=== PATIENT | male | born 1970 | race Caucasian/White ===

== ENCOUNTER → 2016-09-12 | Outpatient (CLI) | payer BC, OTHER | LOC: BMCIMAGING 09:02 | PROVIDERS: ATTEND Family Medicine | DX: S89.91XA Unspecified injury of right lower leg, initial encounter (principal); L08.9 Local infection of the skin and subcutaneous tissue, unspecified ==

== ENCOUNTER 2017-11-28 08:18 | Day surgery (SDC) | payer BC ==
[2017-11-28] MEDS ORDERED: cefOXitin SODIUM 2 GM in STERILE WATER INJ 21 ML IV ONE (08:28)
[2017-11-28] MEDS ORDERED: LR 1,000 ML IV ONE (08:30)
[2017-11-28] MEDS ORDERED: LIDOCAINE 1% 2 ML INJ ID PRN (08:30)
[2017-11-28] MEDS ORDERED: BUPIVACAINE 0.25% 30 ML SDV ONE (08:53)
--- NOTE | 2017-11-28 09:49 | PDHPUP ---
History & Physical Update H&P update statement: This history and physical update is based on an assessment of the patient which was completed after admission or registration (within 24 hours), but prior to the surgery/procedure. H&P update: H&P reviewed & patient examined, no change in patient's condition since H&P completed
[2017-11-28] MEDS ORDERED: MIDAZOLAM 2 MG/2 ML VIAL IVP ONE (10:01)
[2017-11-28] MEDS ORDERED: MIDAZOLAM 2 MG/2 ML VIAL ONE (10:02)
--- NOTE | 2017-11-28 10:02 | PDANEPAE ---
ANE History of Present Illness hemorrhoids ANE Past Medical History - Cardiovascular History Hx Hypertension: No Hx Arrhythmias: No Hx Chest Pain: No Hx Coronary Artery / Peripheral Vascular Disease: No Hx CHF / Valvular Disease: No Hx Palpitations: No - Pulmonary History Hx COPD: No Hx Asthma/Reactive Airway Disease: No Hx Recent Upper Respiratory Infection: No Hx Oxygen in Use at Home: No Hx Sleep Apnea: No Sleep Apnea Screening Result - Last Documented: Negative - Neurologic History Hx Cerebrovascular Accident: No Hx Seizures: No Hx Dementia: No - Endocrine History Hx Diabetes: No - Renal History Hx Renal Disorders: No - Liver History Hx Hepatic Disorders: No - Neurological & Psychiatric Hx Hx Neurological and Psychiatric Disorders: No - Cancer History Hx Cancer: No - Congenital Disorder History Hx Congenital Disorders: No - GI History Hx Gastrointestinal Disorders: No Gastrointestinal History Comment: POSS IBS - Other Health History Other Health History: NEG - Chronic Pain History Chronic Pain: No - Surgical History Prior Surgeries: VASECTOMY. COLONOSCOPY. CHILDHOOD TONSILLECTOMY ANE Review of Systems Review of Systems: - Exercise capacity METS (RN): 6 METS ANE Patient History - Allergies Allergies/Adverse Reactions: No Known Allergies Allergy (Unverified 11/27/17 16:28) - Home Medications Home Medications: Herbals/Supplements -Info Only 11/27/17 [Last Taken Unknown] - NPO status NPO Since - Liquids (Date): 11/28/17 NPO Since - Liquids (Time): 06:20 NPO Since - Solids (Date): 11/27/17 NPO Since - Solids (Time): 19:30 - Smoking Hx Smoking Status: Never smoked - Family Anes Hx Family Hx Anesthesia Complications: NEG ANE Labs/Vital Signs - Vital Signs Blood Pressure: 109/77 Heart Rate: 48 Respiratory Rate: 18 O2 Sat (%): 96 Height: 180.34 cm Weight: 74.843 kg ANE Physical Exam - Airway Neck exam: FROM Mallampati Score: Class 1 Mouth exam: normal dental/mouth exam - Pulmonary Pulmonary: no respiratory distress - Cardiovascular Cardiovascular: regular rate and rhythym - ASA Status ASA Status: I ANE Anesthesia Plan Anesthesia Plan: general endotracheal anesthesia
[2017-11-28] MEDS ORDERED: fentaNYL 100 MCG/2 ML INJ ONE ×2 (10:05)
[2017-11-28] MEDS ORDERED: PROPOFOL 200 MG/20 ML VIAL ONE (10:05)
[2017-11-28] MEDS ORDERED: fentaNYL 100 MCG/2 ML INJ IVP PRN (10:30)
[2017-11-28] MEDS ORDERED: HYDROCODONE/APAP 5/325 TAB PO PRN (10:30)
[2017-11-28] MEDS ORDERED: ONDANSETRON 4 MG/2 ML VIAL IVP PRN (10:30)
[2017-11-28] MEDS ORDERED: NALOXONE HCL 0.4 MG/ML INJ IVP PRN (10:30)
[2017-11-28] MEDS ORDERED: HYDROmorphONE/DILAUDID 2 MG/ML INJ IVP PRN (10:30)
[2017-11-28] MEDS ORDERED: PROMETHAZINE HCL 25 MG/ML INJ IVP PRN (10:30)
[2017-11-28] MEDS ORDERED: ROCURONIUM 50 MG/5 ML VIAL ONE (10:51)
[2017-11-28] MEDS ORDERED: ONDANSETRON 4 MG/2 ML VIAL ONE (10:51)
[2017-11-28] MEDS ORDERED: DEXAMETHASONE 4 MG/ML VIAL ONE (10:52)
[2017-11-28] MEDS ORDERED: LIDOCAINE 2% 5 ML SDV ONE (10:52)
--- NOTE | 2017-11-28 11:09 | POSTOPPROG ---
Post Op Note Date of Operation: 11/28/17 Surgeon: Cristi Mcgee Anesthesiologist: Dr. [place] Anesthesia: GET(General Endotracheal) Pre-op Diagnosis: Hemorrhoids Post-op Diagnosis: same Procedure: REUA, hemorrhoidectomy Inf/Abcess present in the surg proc area at time of surgery?: No Depth: Superfical (Skin SQ) EBL: Minimal
--- NOTE | 2017-11-28 11:10 | POSTANESTH ---
Post Anesthetic Evaluation Cardiovascular Status: Normal, Stable Respiratory Status: Normal, Stable Level of Consciousness/Mental Status: Can Participate in Eval Pain Control: Adequate, Prn Tx Ordered Nausea/Vomiting Control: Adequate, Prn Tx Ordered Complications Possibly Related to Anesthesia: None Noted
--- NOTE | 2017-11-28 11:48 | GOP ---
[f rep st] OPERATIVE REPORT DATE OF OPERATION: 11/28/2017 SURGEON: Ga Mcgee MD ANESTHESIA: General endotracheal anesthesia. ANESTHESIOLOGIST: Alison [place] MD. PREOPERATIVE DIAGNOSIS: Hemorrhoids. POSTOPERATIVE DIAGNOSIS: Hemorrhoids. PROCEDURE PERFORMED: 1. Rectal examination under anesthesia. 2. Internal and external hemorrhoidectomy. FINDINGS: The patient had single column internal and external hemorrhoidal disease. No other lesion s were identified. ESTIMATED BLOOD LOSS: 20 cc. INDICATIONS: 47-year-old male with a history of hemorrhoids. Risks and benefits of the procedure we re discussed with the patient, questions were answered, and he wished to proceed. DESCRIPTION OF PROCEDURE: With the patient in the supine position after the induction of adequate ge neral endotracheal anesthesia, the patient was moved to the modified lithotomy position. He was then prepped and draped in the standard surgical fashion. The anus was serially dilated after performing digital exam. The anoscope was placed, and the rectum was inspected. The right posterior column [place] internal-external complex hemorrhoids. No other lesions were identified. 0.25% Marcaine was then infiltrated throughout the area for local anesthesia. The hemorrhoid was elevated and then clamped. A suture of 3-0 chromic was passed below the clamp initially. The hemorrhoid itself was excised and the clamp removed. The suture was then returned in a locking fashion to the superior aspect of the suture. This was then tied, and this resulted in excellent hemostasis. This was repeated for the ex ternal portion of the hemorrhoid in continuity. These were sent for permanent section. The area was inspected, and no other lesions were identified. A packing of Xeroform and Gelfoam soaked in Marcai ne was placed. The patient was then returned to the supine position and extubated. He was then take n to PACU in stable condition. COMPLICATIONS: None. DRAINS: Include packing. /[id number]/MODL
[2017-11-28 13:27] VITALS: BP 103/79
== END 2017-11-28 13:19 | disposition home or self-care (01) ==
LOC: FSGY 08:18
PROVIDERS: ATTEND Surgery
PROC: 06BY0ZC Excision of Hemorrhoidal Plexus, Open Approach (ICD-10-PCS; principal; 2017-11-28 09:30)
DX: K64.8 Other hemorrhoids (principal); E73.9 Lactose intolerance, unspecified; Z83.71 Family history of colonic polyps
CPT/HCPCS: J0694; J1100; J2250; J2405; J2704; J3010